=== PATIENT | female | born 1965 | race Caucasian/White ===

== ENCOUNTER → 2023-09-20 13:53 | Outpatient (REF) | payer BC, SELFPAY ==
[2023-09-23 15:28] LABS: % Basophils 0.7 % (0-2); % Eosinophils 0.5 % (0-6); % Immature Granulocytes 0.2 % (0-0.5); % Lymphocytes 25.2 % (20.5-51.1); % Neutrophils 65.4 % (42.2-75.2); Absolute Lymphocytes 1.5 10^3/uL (1.2-3.4); Absolute Monocytes 0.5 10^3/uL (0.1-0.6); Absolute Neutrophils 3.8 10^3/uL (1.4-6.5); Hematocrit 33.9 % (37.0-47.0); Hemoglobin 11.4 g/dL (12.0-16.0); Mean Corp Hgb Conc. 33.6 g/dL (33.0-37.0); Mean Corpuscular Hgb 31.9 pg (27.0-31.0); Mean Platelet Volume 9.7 fL (7.4-10.4); Nucleated Red Blood Cells % 0 %; Platelet Count 360 10^3/uL (130-400); Red Blood Cell Count 3.57 10^6/uL (4.20-5.40); Red Cell Dist. Width 12.2 % (11.5-14.5); White Blood Cell Count 5.8 10^3/uL (4.8-10.8)
[2023-09-23 16:12] LABS: Blood Urea Nitrogen 14 mg/dl (7-17); Chloride 95 mmol/L (98-107); Glucose 102 mg/dl (70-99); Potassium 4.6 mmol/L (3.5-5.1); Sodium 127 mmol/L (135-145); eGFR > 60.00
[2023-09-23 16:13] LABS: ALT (SGPT) 19 U/L (0-35); AST (SGOT) 30 U/L (14-36); Albumin 4.9 g/dl (3.5-5.0); Alkaline Phosphatase 63 U/L (38-126); Calcium 9.4 mg/dl (8.4-10.2); Carbon Dioxide 24 mmol/L (22-30); Magnesium 2.2 mg/dl (1.6-2.3); Phosphorus 4.2 mg/dl (2.5-4.5); Total Bilirubin 0.8 mg/dl (0.2-1.3); Total Protein 7.9 g/dl (6.3-8.2)
== END ==
LOC: CLAB 13:53
PROVIDERS: ATTENDING PHYSICIAN Nurse Practitioner Family
DX: R42 Dizziness and giddiness (principal); E87.1 Hypo-osmolality and hyponatremia
CPT/HCPCS: 36415; 80053; 82728; 83735; 84100; 85025

== ENCOUNTER → 2023-09-24 09:44 | Outpatient (REF) | payer BC, SELFPAY | LOC: RCS 09:44 | PROVIDERS: ATTENDING PHYSICIAN Internal Medicine Cardiovascular Disease; FAMILY PHYSICIAN Family Medicine | DX: R42 Dizziness and giddiness (principal); R00.2 Palpitations | CPT/HCPCS: 93225; 93226 ==

== ENCOUNTER → 2023-09-25 11:22 | Outpatient (REF) | payer BC, SELFPAY ==
[2023-09-25 12:21] LABS: ALT (SGPT) 18 U/L (0-35); AST (SGOT) 23 U/L (14-36); Alkaline Phosphatase 67 U/L (38-126); Blood Urea Nitrogen 15 mg/dl (7-17); Calcium 9.9 mg/dl (8.4-10.2); Carbon Dioxide 27 mmol/L (22-30); Chloride 92 mmol/L (98-107); Glucose 111 mg/dl (70-99); Potassium 4.8 mmol/L (3.5-5.1); Sodium 129 mmol/L (135-145); Total Bilirubin 0.7 mg/dl (0.2-1.3); Total Protein 7.8 g/dl (6.3-8.2); eGFR > 60.00
[2023-09-25 15:55] LABS: Free T4 1.66 ng/dl (0.78-2.19)
[2023-09-25 16:09] LABS: Cortisol, Random 11.8 ug/dl; TSH < 0.02 uIU/ml (0.47-4.68)
== END ==
LOC: REG 11:22
PROVIDERS: ATTENDING PHYSICIAN Nurse Practitioner Family; FAMILY PHYSICIAN Ophthalmology
DX: E87.1 Hypo-osmolality and hyponatremia (principal)
CPT/HCPCS: 36415; 80053; 82533; 84439; 84443

== ENCOUNTER → 2023-09-26 09:52 | Outpatient (REF) | payer BC, SELFPAY | LOC: RCS 09:52 | PROVIDERS: ATTENDING PHYSICIAN Internal Medicine Cardiovascular Disease; FAMILY PHYSICIAN Family Medicine | DX: R42 Dizziness and giddiness (principal); R00.2 Palpitations; R07.2 Precordial pain | CPT/HCPCS: 93017 ==

== ENCOUNTER → 2023-10-01 09:11 | Outpatient (REF) | payer BC, SELFPAY ==
[2023-10-01 12:04] LABS: ALT (SGPT) 18 U/L (0-35); AST (SGOT) 25 U/L (14-36); Albumin 4.7 g/dl (3.5-5.0); Alkaline Phosphatase 60 U/L (38-126); Blood Urea Nitrogen 16 mg/dl (7-17); Calcium 9.6 mg/dl (8.4-10.2); Carbon Dioxide 27 mmol/L (22-30); Chloride 94 mmol/L (98-107); Glucose 135 mg/dl (70-99); Potassium 4.4 mmol/L (3.5-5.1); Sodium 132 mmol/L (135-145); Total Bilirubin 0.7 mg/dl (0.2-1.3); Total Protein 7.5 g/dl (6.3-8.2); eGFR > 60.00
[2023-10-01 12:16] LABS: Free T4 1.39 ng/dl (0.78-2.19)
[2023-10-01 12:31] LABS: Cortisol, Random 8.3 ug/dl; TSH < 0.02 uIU/ml (0.47-4.68)
== END ==
LOC: DHCBC HW 09:11
PROVIDERS: Nurse Practitioner Family; ATTENDING PHYSICIAN Internal Medicine Cardiovascular Disease; FAMILY PHYSICIAN Family Medicine
DX: R42 Dizziness and giddiness (principal); R00.2 Palpitations; R07.2 Precordial pain; E87.1 Hypo-osmolality and hyponatremia
CPT/HCPCS: 36415; 80053; 82533; 84439; 84443; 93306

== ENCOUNTER → 2023-11-14 10:49 | Outpatient (REF) | payer BC, SELFPAY | LOC: HWWDC 10:49 | PROVIDERS: ATTENDING PHYSICIAN Obstetrics & Gynecology Gynecology; FAMILY PHYSICIAN Family Medicine | DX: Z12.31 Encounter for screening mammogram for malignant neoplasm of breast (principal) | CPT/HCPCS: 77063; 77067 ==

== ENCOUNTER 2024-02-28 14:14 | Emergency (ER) | payer BC, SELFPAY ==
[2024-02-28 14:20] VITALS: BP 169/96
--- NOTE | 2024-02-28 16:13 | ED.GENMED ---
History of Present Illness
General
Chief Complaint: Weakness
Source: patient
Exam Limitations: none
Time Seen by Provider: 02/28/24 16:09
Nursing documentation reviewed up to this point in time: agreed with
History of Present Illness
History of Present Illness:
58-year-old female with history of hypothyroid, HTN, GERD, cholecystectomy, anemia, chronic intermittent hyponatremia (followed by Dr. Simmons). Patient presents stating 'I just felt weird since yesterday.' She played tennis and 'sweated more than
usual.' Merritt fatigued and is urinating less than usual. Had nausea yesterday, none today, no vomiting. During night had leg cramps and legs 'feel heavy.' Feels generally weak. Is concerned her sodium is low. She has been drinking well but appetite
decreased.
Denies f/c/, denies d/c.
Past History
Past History
ED Past Medical History: GERD, HTN and Hypothyroidism
ED Past Surgical History: Cholecystectomy
Social History
Tobacco: Non-smoker
Alcohol: Daily (Wine 2 glasses)
Drug: None
Personal:
Living: with family
Employment: Employed
Family History
Family History: Hypertension, CAD and Other
Review of Systems
Review of Systems
Allergies reviewed?: Yes
All Other Systems: ROS reviewed and negative except as documented in HPI and ROS
Constitutional: Reports fatigue; Denies fever
EENT: Denies sore throat
Respiratory: Denies trouble breathing
Cardiac: Denies chest pain or palpitations
: Reports other (Feels she is not urinating as much as she usually does); Denies dysuria or flank pain
Musculoskeletal: Reports other (Leg cramps and heaviness)
Skin: Reports no symptoms
Neurological: Reports weakness (Generalized); Denies dizzy, headache or numbness
Phy Exam
Physical Exam
Physical Exam:
GENERAL: No acute distress. A&Ox3.
CONSTITUTIONAL: Afebrile.
EYES: PERRL, conjunctivae normal
Neck: Supple
ENMT: moist mucus membranes, Pharynx nl
RESPIRATORY: Regular respirations, nonlabored, lungs clear.
CARDIOVASCULAR: Regular rate and rhythm, no murmurs, no rubs.
GI: Soft, nontender, normal BS
MUSCULOSKELETAL: Moves with ease. Well perfused.
SKIN: Warm, dry, pink
PSYCH: Normal mood and affect. Well kept, interactive and appropriate
NEUROLOGIC: Awake, alert and oriented. No focal neurological deficits
Course
Orders/Labs/Results
Orders:
Orders
02/28/24 14:24
EKG [Electrocardiogram (*1)] Urgent
Reason for Study: Fatigue / Weakness
EKG- Treatment ONCE
02/28/24 16:50
Complete Blood Count/With Diff Urgent
Comprehensive Metabolic Panel Urgent
Free T4 Urgent
Magnesium Urgent
TSH Reflex To Free T4 Urgent
Urinalysis Reflex To Culture Urgent
Date Specimen was Collected: 02/28/24
Time Specimen was Collected: 16:30
02/28/24 18:53
0.9% Sodium Chloride 500 ml [Nss] 500 ml IV BOLUS
Abnormal Lab Results
02/28/24
16:50
RBC 3.49 L 10^6/uL
(4.20-5.40)
Hgb 11.5 L g/dL
(12.0-16.0)
Hct 31.4 L %
(37.0-47.0)
MCH 33.0 H pg
(27.0-31.0)
Monocytes % 11.8 H %
(1.7-9.3)
Sodium 130 L mmol/L
(135-145)
Chloride 90 L mmol/L
(98-107)
BUN 22 H mg/dl
(7-17)
Glucose 104 H mg/dl
(70-99)
TSH (Reflex) < 0.02 L uIU/ml
(0.47-4.68)
02/28/24 16:50
02/28/24 16:50
Vital Signs
Initial and Last Documented VS:
Initial Vital Signs
Temp Pulse Resp BP Pulse Ox
97.8 F 90 16 169/96 96
02/28/24 14:20 02/28/24 14:20 02/28/24 14:20 02/28/24 14:20 02/28/24 14:20
Last Documented Vital Signs
Temp Pulse Resp BP Pulse Ox
97.8 F 72 18 132/86 96
02/28/24 14:20 02/28/24 19:58 02/28/24 19:58 02/28/24 19:58 02/28/24 14:20
MDM/Problems Addressed
Differential Diagnosis Includes:
dehydration, hyponatremia, UTI
MDM/Problems Addressed:
58-year-old female with history of hypothyroid, HTN, GERD, cholecystectomy, anemia, chronic intermittent hyponatremia (followed by Dr. Simmons). Patient presents stating 'I just felt weird since yesterday.' She played tennis and 'sweated more than
usual.' [place]itt fatigued and is urinating less than usual. Had nausea yesterday, none today, no vomiting. During night had leg cramps and legs 'feel heavy.' Feels generally weak. Is concerned her sodium is low. She has been drinking well but appetite
decreased.
Denies f/c/, denies d/c.
Afebrile, NAD
EKG NSR
Patient had echocardiogram and stress test and Holter monitor 09/2023 all unremarkable
CBC with no clinically significant abnormality
CMP: Sodium 130, BUN 22
TSH less than 0.02, free T4 normal
Pt had Na 124 11/2020 and given 1 L NSS, repeat was 129 and she was discharged.
NSS 500 ml given for mild dehydration, mild hyponatremia here today
TSH level is nothing new. Pt has seen Dr. Hebert End[facility] in past but has been seeing [facility]. [facility] who has been compounding her T3 6 mg and T4 140 mg pt states (no longer taking Levothyroxine)
She will follow up with Endocrinology Dr. Hebert.
Chronic conditions affecting care: Other (chronic hyponatremia, hypothyroid)
*Critical Care Note
Total Time (30-74mins, 75-104mins- exclusive of procedures): Not Applicable
ED Attending Note
-
Portions of this chart may have been created with voice recognition software.� Occasional wrong word or��sound alike� substitutions may have occurred due to the inherent limitations of voice recognition software.
Discharge Plan
Departure
Patient Disposition: Home (Routine Discharge)
Date of Disposition: 02/28/24
Time of Disposition: 19:20
Patient with high blood pressure during this ER visit?: No
Condition: Good
Discharge Problem:
Mild dehydration, Chronic hyponatremia, Subclinical hypothyroidism
Instructions: Hypothyroidism (underactive thyroid), Generalized Weakness (DC), Dehydration, Adult ED
Prescriptions:
No Action
levothyroxine 150 MCG tablet
137 mcg PO DAILY
omeprazole 40 MG capsule,delayed release(DR/EC)
1 tab PO DAILY
Patient Comments:
unknown mg
Referrals:
Jalyn Hebert MD [Consulting Staff] - Next open appointment
Alejandro Smith DO [Family Provider] -
Activity Restrictions/Additional Instructions:
As we discussed see your Compensation Consulting Manager about your low TSH.
Your sodium level is mildly low, nothing worrisome
Your urinalysis is normal.
Interventions
Interventions:
*Risk Screen - Suicide Last Done: 02/28/24 14:20
*General Assessment Last Done: 02/28/24 14:20
*Neglect/Abuse Screening Last Done: 02/28/24 14:20
ED- Fall Risk Assessment Last Done: 02/28/24 17:08
*ED COVID-19 Vaccine History Last Done: 02/28/24 17:07
*Nursing Disposition Last Done: 02/28/24 19:58
ED- Cardiac Assessment Last Done: 02/28/24 16:25
ED- Neurological Assessment Last Done: 02/28/24 17:08
ED- Pulmonary Assessment Last Done: 02/28/24 17:08
Discharge Date and Time
Discharge Date/Time: 02/28/24 19:59
Print Language: BOLIVIAN
[2024-02-28 17:00] LABS: % Basophils 0.7 % (0-2); % Eosinophils 0.7 % (0-6); % Immature Granulocytes 0.2 % (0-0.5); % Lymphocytes 32.8 % (20.5-51.1); % Monocytes 11.8 % (1.7-9.3); % Neutrophils 53.8 % (42.2-75.2); Absolute Lymphocytes 1.8 10^3/uL (1.2-3.4); Absolute Monocytes 0.6 10^3/uL (0.1-0.6); Absolute Neutrophils 2.9 10^3/uL (1.4-6.5); Hematocrit 31.4 % (37.0-47.0); Hemoglobin 11.5 g/dL (12.0-16.0); Mean Corp Hgb Conc. 36.6 g/dL (33.0-37.0); Mean Platelet Volume 8.7 fL (7.4-10.4); Nucleated Red Blood Cells % 0 %; Platelet Count 331 10^3/uL (130-400); Red Blood Cell Count 3.49 10^6/uL (4.20-5.40); Red Cell Dist. Width 11.9 % (11.5-14.5); White Blood Cell Count 5.4 10^3/uL (4.8-10.8)
[2024-02-28 17:05] VITALS: BMI 26.5
[2024-02-28 17:14] LABS: Urine Albumin Negative (Neg - Trace); Urine Bilirubin Negative (Negative); Urine Character Clear (Clear); Urine Color Yellow; Urine Glucose Negative (Negative); Urine Ketone Negative (Negative); Urine Leukocyte Negative (Negative); Urine Nitrite Negative (Negative); Urine Occult Blood Negative (Negative); Urine Urobilinogen Negative (Neg - 1+)
[2024-02-28 17:15] LABS: ALT (SGPT) 17 U/L (0-35); AST (SGOT) 27 U/L (14-36); Albumin 4.8 g/dl (3.5-5.0); Alkaline Phosphatase 66 U/L (38-126); Blood Urea Nitrogen 22 mg/dl (7-17); Calcium 10.1 mg/dl (8.4-10.2); Carbon Dioxide 25 mmol/L (22-30); Chloride 90 mmol/L (98-107); Estimated Creatinine Clearance 55 ml/min; Glucose 104 mg/dl (70-99); Magnesium 1.9 mg/dl (1.6-2.3); Potassium 4.2 mmol/L (3.5-5.1); Sodium 130 mmol/L (135-145); Total Bilirubin 0.9 mg/dl (0.2-1.3); Total Protein 7.3 g/dl (6.3-8.2); eGFR > 60.00
[2024-02-28 17:44] LABS: TSH Reflex To Free T4 < 0.02 uIU/ml (0.47-4.68)
[2024-02-28 18:13] LABS: Free T4 1.55 ng/dl (0.78-2.19)
[2024-02-28] MEDS: NSS 500 IV (18:57)
[2024-02-28 19:34] VITALS: BP 132/86
[2024-02-28 19:58] VITALS: BP 132/86
== END 2024-02-28 19:59 | disposition home or self-care (01) ==
LOC: EMR 14:14
PROVIDERS: Registered Nurse; EMERGENCY PHYSICIAN Emergency Medicine; FAMILY PHYSICIAN Family Medicine
DX: E87.1 Hypo-osmolality and hyponatremia (principal); E03.8 Other specified hypothyroidism; R07.89 Other chest pain; E86.0 Dehydration; I10 Essential (primary) hypertension; K21.9 Gastro-esophageal reflux disease without esophagitis; D64.9 Anemia, unspecified; Z90.49 Acquired absence of other specified parts of digestive tract; Z88.0 Allergy status to penicillin
CPT/HCPCS: 99284; 80053; 81003; 83735; 84439; 84443; 85025; 93005

== ENCOUNTER → 2024-08-31 10:16 | Outpatient (REF) | payer BC, SELFPAY | LOC: HWRAD 10:16 | PROVIDERS: ATTENDING PHYSICIAN Nurse Practitioner; FAMILY PHYSICIAN Family Medicine | DX: N30.10 Interstitial cystitis (chronic) without hematuria (principal) | CPT/HCPCS: 76770; 76856 ==

== ENCOUNTER → 2024-10-26 10:25 | Outpatient (REF) | payer BC, SELFPAY | LOC: MRI 10:25 | PROVIDERS: ATTENDING PHYSICIAN Obstetrics & Gynecology Gynecology; FAMILY PHYSICIAN Family Medicine | DX: D21.9 Benign neoplasm of connective and other soft tissue, unspecified (principal); N85.8 Other specified noninflammatory disorders of uterus; Z78.0 Asymptomatic menopausal state | CPT/HCPCS: 72197; A9575 ==

== ENCOUNTER → 2024-10-29 07:14 | Outpatient (REF) | payer BC, SELFPAY | LOC: RAD 07:14 | PROVIDERS: ATTENDING PHYSICIAN Obstetrics & Gynecology Gynecology; FAMILY PHYSICIAN Family Medicine; REFERRING PHYSICIAN Surgery | DX: R18.8 Other ascites (principal) | CPT/HCPCS: 74177; Q9967 ==

== ENCOUNTER → 2024-11-19 11:49 | Outpatient (REF) | payer BC, SELFPAY | LOC: HWWDC 11:49 | PROVIDERS: ATTENDING PHYSICIAN Family Medicine | DX: Z12.31 Encounter for screening mammogram for malignant neoplasm of breast (principal) | CPT/HCPCS: 77063; 77067 ==